=== PATIENT | male | born 1985 | race Caucasian/White ===

== ENCOUNTER → 2017-04-01 | Outpatient (CLI) | payer BC ==
[~2017-04-01] MED LIST: CODE118S2 PO; IBUP200C62 PO; NO DAILY MEDICATIONS; ONDA4TAB7 PO
== END ==
LOC: LAB 12:36
PROVIDERS: ATTEND Family Medicine
DX: R19.7 Diarrhea, unspecified (principal)
CPT/HCPCS: 87507